=== PATIENT | female | born 1955 | race African-American/Black ===

== ENCOUNTER 2022-04-07 15:00 | Outpatient (CLI) | payer MEDICARE ==
[2022-04-07 17:32] LABS: #Eosinphils 0.1 10x3/uL (0.0-0.5); #Monocytes 0.6 10x3/uL (0.0-1.1); #Neutrophils 2.7 10x3/uL (1.5-8.4); %Basophils 0.7 % (0.0-2.0); %Lymphocytes 41.4 % (18.0-47.0); %Monocytes 9.7 % (0.0-10.0); Hemoglobin 13.8 g/dL (12.0-15.5); Mean Corpuscular HGB CONC 32.2 g/dL (32.0-36.0); Mean Corpuscular Hemoglobin 28.3 pg (27.0-33.0); Mean Corpuscular Volume 87.9 fl (81.6-98.3); Mean Platelet Volume 11.2 fl (7.4-10.4); Platelet Count 282 10x3/uL (150-450); RBC Distribution Width 14.4 % (11.5-14.5); Red Blood Cell (RBC) Count 4.87 10x6/uL (3.90-5.03)
[2022-04-08 01:01] LABS: SARS-CoV-2 PCR by NAA Not Detected (NotDetected)
== END 2022-04-07 15:01 | disposition home or self-care (01) ==
LOC: LABBT 15:00
PROVIDERS: ATTEND Orthopaedic Surgery Hand Surgery
DX: Z01.818 Encounter for other preprocedural examination (principal); M65.4 Radial styloid tenosynovitis [de Quervain]; Z20.822 Contact with and (suspected) exposure to COVID-19
CPT/HCPCS: 85025; U0003; U0005; 93005; 93010

== ENCOUNTER 2022-04-09 09:47 | Day surgery (SDC) | payer MEDICARE ==
[2022-04-08 09:07] VITALS: BMI 35.6
[2022-04-09] MEDS ORDERED: Betamet Acet/Betamet Na Ph 30 MG/5 ML VIAL ONE (10:51)
[2022-04-09] MEDS ORDERED: Bupivacaine PF 0.5% 30 ML VIAL ONE (10:51)
[2022-04-09] MEDS ORDERED: Neomycin-Polymyxin 1 ML AMP ONE (10:51)
[2022-04-09] MEDS ORDERED: Bacitracin Zinc Ointment 30 gm TUBE ONE (10:51)
[2022-04-09] MEDS ORDERED: fentaNYL Citrate/PF 100 MCG/2 ML SYRINGE ONE (11:24)
[2022-04-09] MEDS ORDERED: Sodium Chloride 0.9% 100 ML ONE (11:39)
[2022-04-09] MEDS ORDERED: CEFAZOLIN 2 GM VIAL ONE (11:39)
[2022-04-09] MEDS ORDERED: Lidocaine 1% PF 5 ML VIAL ONE (11:55)
[2022-04-09] MEDS ORDERED: ePHEDrine 50 MG/ML VIAL ONE (11:55)
[2022-04-09] MEDS ORDERED: PROPOFOL 200 MG/20 ML VIAL ONE (11:55)
[2022-04-09] MEDS ORDERED: Ondansetron PF 4 MG/2 ML Vial ONE (11:55)
[2022-04-09] MEDS ORDERED: Ketorolac Tromethamine 30 MG/ML VIAL ONE (11:55)
[2022-04-09] MEDS ORDERED: Dexamethasone 20 MG/5 ML VIAL ONE (11:55)
[2022-04-09] MEDS ORDERED: Thrombin 5000 UNITS/5 ML VIAL ONE (12:16)
== END 2022-04-09 14:35 | disposition home or self-care (01) ==
LOC: SDC 09:47
PROVIDERS: ATTEND Orthopaedic Surgery Hand Surgery
PROC: 0LN60ZZ Release Left Lower Arm and Wrist Tendon, Open Approach (ICD-10-PCS; principal; 2022-04-09)
DX: M65.4 Radial styloid tenosynovitis [de Quervain] (principal); G56.02 Carpal tunnel syndrome, left upper limb; G56.22 Lesion of ulnar nerve, left upper limb; I10 Essential (primary) hypertension; I48.91 Unspecified atrial fibrillation; Z86.711 Personal history of pulmonary embolism; Z86.718 Personal history of other venous thrombosis and embolism; Z79.01 Long term (current) use of anticoagulants; Z79.811 Long term (current) use of aromatase inhibitors; Z79.899 Other long term (current) drug therapy; Z91.041 Radiographic dye allergy status
CPT/HCPCS: 25000; C1713; J0702; J1100; J1885; J2405; J2704; J3490; S0020